=== PATIENT | female | born 1990 | race Caucasian/White ===

== ENCOUNTER → 2018-02-02 | Outpatient (CLI) | payer BC ==
[~2018-02-02] MED LIST: ALBU90OI INH; OXYACE5T PO
[2018-02-17 11:22] LABS: CHLAMYDIA TRACHOMATIS, NAA Negative (Negative); NEISSERIA GONORRHOEAE, NAA Negative (Negative)
== END | disposition home or self-care (01) ==
LOC: LAB SHORT 16:37 → LAB 16:37
PROVIDERS: Obstetrics & Gynecology
DX: Z34.01 Encounter for supervision of normal first pregnancy, first trimester (principal)
CPT/HCPCS: 87491; 87591; G0123

== ENCOUNTER 2018-02-24 11:51 | Emergency (ER) | payer BC ==
[~2018-02-24] VITALS: Ht 152.4 cm; Wt 81.7 kg
[2018-02-24 12:23] LABS: BASOPHILS ABSOLUTE AUTO 0.04 K/mm3 (0.00-0.23); BASOPHILS PERCENT AUTO 0 % (0-2); EOSINOPHILS ABSOLUTE AUTO 0.06 K/mm3 (0.00-0.68); EOSINOPHILS PERCENT AUTO 1 % (0-6); Hematocrit 37.8 % (33.0-51.0); Hemoglobin 12.5 g/dL (11.5-16.0); IMMATURE GRAN PERCENT AUTO 1 % (0-1); LYMPHOCYTES ABSOLUTE AUTO 2.19 K/mm3 (0.84-5.20); LYMPHOCYTES PERCENT AUTO 19 % (21-46); MONOCYTES ABSOLUTE AUTO 0.86 K/mm3 (0.16-1.47); MONOCYTES PERCENT AUTO 7 % (4-13); Mean Corpuscular HGB 28.7 pg (26.0-34.0); Mean Corpuscular HGB Conc 33.1 g/dL (31.5-36.5); Mean Corpuscular Volume 87 fL (80-100); Mean Platelet Volume 9.4 fL (9.1-12.4); NEUTROPHILS ABSOLUTE AUTO 8.59 K/mm3 (1.96-9.15); NEUTROPHILS PERCENT AUTO 73 % (41-73); Platelet Count 387 K/mm3 (150-400); RDW Coefficient Variation 13.2 % (11.7-14.2); RDW Standard Deviation 41.8 fL (35.1-46.3); Red Blood Cell Count 4.36 M/mm3 (3.80-5.20); White Blood Cell Count 11.84 K/mm3 (4.00-11.30)
[2018-02-24 12:47] LABS: Alanine Aminotransfer (ALT/SGP 24 U/L (12-78); Albumin, Blood 3.4 g/dL (3.4-5.0); Albumin/Globulin Ratio 0.8 (0.8-1.8); Alk Phos 88 U/L (50-136); Anion Gap 8 mmol/L (6-16); Aspartate Aminotrans (AST/SGOT 17 U/L (12-37); Bilirubin, Total 0.5 mg/dL (0.1-1.0); Blood Urea Nitrogen 11 mg/dL (8-24); Bun/Creatinine Ratio 17.1 (12.0-20.0); CO2, Blood 24 mmol/L (21-32); Calcium, Blood 9.1 mg/dL (8.5-10.1); Chloride, Blood 106 mmol/L (98-108); Creatinine, Blood 0.64 mg/dL (0.40-1.00); Globulin, Blood 4.3 g/dL (2.2-4.0); Glomerular Filtration Rate >60 (60-); Glucose, Blood 86 mg/dL (70-99); Potassium, Blood 3.8 mmol/L (3.5-5.5); Sodium, Blood 138 mmol/L (136-145); Total Protein, Blood 7.7 g/dL (6.4-8.2)
[2018-02-24 13:04] LABS: Beta HCG, Quantitative, Serum 40198 mIU/mL (0-3)
[2018-02-24] MEDS ORDERED: Verotin-Gr Cap1 EACH PO (13:49)
== END 2018-02-24 14:39 | disposition home or self-care (01) ==
LOC: ER 11:51
PROVIDERS: Physician Assistant
DX: O99.89 Other specified diseases and conditions complicating pregnancy, childbirth and the puerperium (principal); N99.820 Postprocedural hemorrhage of a genitourinary system organ or structure following a genitourinary system procedure; O99.511 Diseases of the respiratory system complicating pregnancy, first trimester; J45.909 Unspecified asthma, uncomplicated; Z3A.13 13 weeks gestation of pregnancy; Z88.0 Allergy status to penicillin
CPT/HCPCS: 36415; 76801; 80053; 84702; 85025; 86900; 86901; 99284-25

== ENCOUNTER 2018-08-15 16:34 | Inpatient (IN) | payer BC ==
[~2018-08-15] VITALS: Ht 149.9 cm; Wt 97.5 kg
[2018-08-15 14:18] LABS: BASOPHILS ABSOLUTE AUTO 0.03 K/mm3 (0.00-0.23); BASOPHILS PERCENT AUTO 0 % (0-2); EOSINOPHILS ABSOLUTE AUTO 0.06 K/mm3 (0.00-0.68); EOSINOPHILS PERCENT AUTO 1 % (0-6); Hemoglobin 12.5 g/dL (11.5-16.0); IMMATURE GRAN PERCENT AUTO 2 % (0-1); LYMPHOCYTES ABSOLUTE AUTO 1.45 K/mm3 (0.84-5.20); LYMPHOCYTES PERCENT AUTO 15 % (21-46); MONOCYTES ABSOLUTE AUTO 0.85 K/mm3 (0.16-1.47); MONOCYTES PERCENT AUTO 9 % (4-13); Mean Corpuscular HGB 28.5 pg (26.0-34.0); Mean Corpuscular HGB Conc 32.9 g/dL (31.5-36.5); Mean Corpuscular Volume 87 fL (80-100); Mean Platelet Volume 10.1 fL (9.1-12.4); NEUTROPHILS ABSOLUTE AUTO 7.44 K/mm3 (1.96-9.15); NEUTROPHILS PERCENT AUTO 74 % (41-73); Platelet Count 334 K/mm3 (150-400); RDW Coefficient Variation 15.1 % (11.7-14.2); RDW Standard Deviation 47.8 fL (35.1-46.3); Red Blood Cell Count 4.38 M/mm3 (3.80-5.20); White Blood Cell Count 10.03 K/mm3 (4.00-11.30)
[~2018-08-15 16:34] MED LIST changes: +LABE100 PO; +Verotin-Gr Cap1 EACH PO
--- NOTE | 2018-08-16 10:56 | NUR ---
08/16/18 1056 Susan Kim VIABLE MALE DELIVERED VIA PRIMARY SECTION AT 1017 ON 08/16/[address] TRACY THE SURGEON AND DR. ZULETA THE DENTAL DETAIL REPRESENTATIVE. APGARS 9/9. WT 3225 GRAMS, LENGTH 20.5 INCHES, HEAD 13 IN, CHEST 12.75 IN. CORD BLOOD WAS GIVEN TO GARY HUMMEL TO SEND TO LAB.
[2018-08-17 08:17] LABS: BASOPHILS ABSOLUTE AUTO 0.03 K/mm3 (0.00-0.23); BASOPHILS PERCENT AUTO 0 % (0-2); EOSINOPHILS ABSOLUTE AUTO 0.06 K/mm3 (0.00-0.68); EOSINOPHILS PERCENT AUTO 1 % (0-6); Hematocrit 32.5 % (33.0-51.0); Hemoglobin 10.7 g/dL (11.5-16.0); IMMATURE GRAN ABSOLUTE AUTO 0.15 K/mm3 (0.00-0.10); IMMATURE GRAN PERCENT AUTO 1 % (0-1); LYMPHOCYTES ABSOLUTE AUTO 1.36 K/mm3 (0.84-5.20); LYMPHOCYTES PERCENT AUTO 11 % (21-46); MONOCYTES ABSOLUTE AUTO 1.02 K/mm3 (0.16-1.47); MONOCYTES PERCENT AUTO 8 % (4-13); Mean Corpuscular HGB 28.4 pg (26.0-34.0); Mean Corpuscular HGB Conc 32.9 g/dL (31.5-36.5); Mean Corpuscular Volume 86 fL (80-100); Mean Platelet Volume 9.6 fL (9.1-12.4); NEUTROPHILS ABSOLUTE AUTO 10.32 K/mm3 (1.96-9.15); NEUTROPHILS PERCENT AUTO 80 % (41-73); Platelet Count 292 K/mm3 (150-400); RDW Coefficient Variation 15.5 % (11.7-14.2); RDW Standard Deviation 48.3 fL (35.1-46.3); Red Blood Cell Count 3.77 M/mm3 (3.80-5.20); White Blood Cell Count 12.94 K/mm3 (4.00-11.30)
[2018-08-18] MEDS ORDERED: IBUP800 (11:01)
[2018-08-18] MEDS ORDERED: Percocet 5-3251 EACH (11:02)
--- NOTE | 2018-08-18 15:53 | NUR ---
CONSULT PRIOR TO DISCHARGE HOME. HAS BEEN USING A SHIELD AND HAS STARTED USING SNS WITH FEEDINGS DUE TO WT LOSS. 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 FOLLOWS GUM STIMULATION SLOWLY WITH TONGUE AND DOES NOT EXTEND TONGUE WELL. SHIELD APPLIED AND HE SUCKLES OFF AND ON. FEEDING TUBE/SYRINGE WITH FORMULA INSIDE SHIELD WHEN HE SUCKLES, AND SUCKLE AND SWALLOW RATE INCREASED. 10CC OF FORMULA GIVEN. HE QUIT SUCKING WHEN FORMULA STOPPED. ATTEMPTED SELF EBM SEVERAL TIMES AND UNABLE TO ELICIT A DROP OF COLOSTRUM. INSTRUCT TO START PUMPING WHEN SHE GETS HOME, 15-20 MINUTES IMMEDIATELY AFTER HIS FEEDINGS, AT LEAST 8-10X/DAY. CAN USE EBM IN SNS WHEN AVAILABLE. TO INCREASES SNS AMOUNT TO 15-20CC TOMORROW AND WILL F/U IN [facility] IN 48 HOURS TO ASSESS PRODUCTION AND SUCKLING. QUESTIONS ANSWERED. MOM SEEMS SOMEWHAT OVERWHELMED WITH BF. ASKING QUESTIONS ABOUT BOTTLES.
[2018-11-03] MEDS ORDERED: ORTHO MICRONO0.35 MG PO (08:39)
== END 2018-08-18 11:00 | disposition home or self-care (01) | DRG 788 ==
LOC: BC 08-16 07:35
PROVIDERS: ADMIT Obstetrics & Gynecology
PROC: 10D00Z1 Extraction of Products of Conception, Low, Open Approach (ICD-10-PCS; principal; 2018-08-16 09:30)
DX: O34.43 Maternal care for other abnormalities of cervix, third trimester (principal); N84.1 Polyp of cervix uteri; Z3A.39 39 weeks gestation of pregnancy; Z37.0 Single live birth; Z88.0 Allergy status to penicillin
CPT/HCPCS: 36415; 85025; 86850; 86900; 86901; J0694; J1885; J2210; J2590; J2765; J3010; J7120

== ENCOUNTER 2018-11-14 06:22 | Day surgery (SDC) | payer BC ==
[~2018-11-14] VITALS: Ht 152.4 cm; Wt 86.8 kg
[~2018-11-14 06:22] MED LIST changes: +IBUP800; +ORTHO MICRONO0.35 MG PO; +Percocet 5-3251 EACH
[2018-11-14] MEDS ORDERED: PRENATAL TABLE1 EAC2 (07:16)
--- NOTE | 2018-11-14 08:33 | NUR ---
11/14/18 0833 Akilah Coleman PT IS RESTING COMFORTABLY IN RECLINER WITH HER AND AT HER SIDE. CALL LIGHT IN REACH, PT STATES NO PAIN JUST SOME LIGHT CRAMPING SIMILAR TO A PERIOD, NO PAIN MEDICATION REQUIRED. [facility].
--- NOTE | 2018-11-14 08:38 | NUR ---
11/14/18 0838 Emma Cortes PT. HAD VERBALIZE IN PREOP THAT HAD A REACTION TO SURGICAL TAPE & EKG PADS & STERISTRIPS. DR. DELEON [facility] NOTIFIED. PT. VERBALIZES OK TO USE TEGADERM FOR HER IV.
== END 2018-11-14 08:49 | disposition home or self-care (01) ==
LOC: ORSCSDS 06:22
PROVIDERS: Obstetrics & Gynecology
PROC: 0UDB8ZX Extraction of Endometrium, Via Natural or Artificial Opening Endoscopic, Diagnostic (ICD-10-PCS; principal; 2018-11-14 07:30)
DX: N84.1 Polyp of cervix uteri (principal); J45.909 Unspecified asthma, uncomplicated; E66.01 Morbid (severe) obesity due to excess calories; Z68.37 Body mass index [BMI] 37.0-37.9, adult
CPT/HCPCS: 88305; J1100; J2250; J2405; J2704; J3010; J7120

== ENCOUNTER → 2020-01-22 | Outpatient (CLI) | payer BC ==
[~2020-01-22] MED LIST changes: +PRENATAL TABLE1 EAC2
== END | disposition home or self-care (01) ==
LOC: LAB 14:48 → LAB SHORT 14:48
PROVIDERS: Obstetrics & Gynecology
DX: Z12.4 Encounter for screening for malignant neoplasm of cervix (principal)
CPT/HCPCS: G0123

== ENCOUNTER → 2021-02-17 | Outpatient (CLI) | payer BC | END | disposition home or self-care (01) | LOC: PLD 12:11 → LAB 12:11 → LAB SHORT 12:11 | PROVIDERS: Obstetrics & Gynecology | DX: Z12.4 Encounter for screening for malignant neoplasm of cervix (principal) | CPT/HCPCS: G0123 ==

== ENCOUNTER 2022-01-21 13:51 | Emergency (ER) | payer OTHER ==
[~2022-01-21] VITALS: Ht 152.4 cm; Wt 85.7 kg
[2022-01-21] MEDS ORDERED: SERT25 PO (14:08)
[2022-01-21] MEDS ORDERED: BIRTH CONTROL (14:08)
[2022-01-21] MEDS ORDERED: DOXY100 PO (17:03)
[2022-01-21] MEDS ORDERED: Cleocin HCl150 MG PO (17:03)
== END 2022-01-21 18:05 | disposition home or self-care (01) ==
LOC: ER 13:51
DX: S61.452A Open bite of left hand, initial encounter (principal); J45.909 Unspecified asthma, uncomplicated; Z88.0 Allergy status to penicillin; Z91.048 Other nonmedicinal substance allergy status; Z79.899 Other long term (current) drug therapy; W54.0XXA Bitten by dog, initial encounter
CPT/HCPCS: 73120; A9270